=== PATIENT | female | born 1985 | race Caucasian/White ===

== ENCOUNTER 2018-02-07 15:16 | Emergency (ER) | payer SELFPAY ==
[~2018-02-07] VITALS: Ht 165.1 cm; Wt 97.0 kg
[2018-02-07 20:08] LABS: CLARITY URINE CLOUDY (CLEAR); COLOR URINE YELLOW (YELLOW); KETONES URINE 1+ (NEGATIVE); LEUKOCYTE ESTERASE URINE TRACE (NEGATIVE); NITRITE URINE NEGATIVE (NEGATIVE); OCCULT BLOOD URINE TRACE (NEGATIVE); PROTEIN URINE NEGATIVE (NEGATIVE); SPECIFIC GRAVITY URINE 1.013 (1.005-1.030); UROBILINOGEN URINE 0.2 E.U./dL (0.2-1.0)
[2018-02-07 20:22] LABS: *AMPHETAMINES SCREEN URINE NEGATIVE (NEGATIVE); *BARBITURATES SCREEN URINE NEGATIVE (NEGATIVE)
[2018-02-07 20:23] LABS: *BENZODIAZEPINES SCREEN URINE NEGATIVE (NEGATIVE); *COCAINE SCREEN URINE NEGATIVE (NEGATIVE); METHADONE URINE SCREEN NEGATIVE (NEGATIVE); OPIATES URINE SCREEN NEGATIVE (NEGATIVE)
[2018-02-07 20:24] LABS: PHENCYCLIDINE URINE SCREEN NEGATIVE (NEGATIVE)
[2018-02-07 20:31] LABS: HEMATOCRIT. 37.8 % (36.0-48.0); HEMOGLOBIN. 13.3 g/dL (12.0-16.0); LYMPHOCYTES % 33.2 % (20.0-50.0); MEAN CORPUSCULAR HEMOGLOBIN 32.6 pg (28.0-32.0); MEAN CORPUSCULAR VOLUME 92.5 fL (81.0-99.0); MEAN PLATELET VOLUME 9.3 fl (7.4-10.4); MONOCYTES % 11.9 % (2.0-8.0); NEUTROPHILS % 52.9 % (40.0-76.0); PLATELET 159 x1000/uL (130-400); RED BLOOD CELL COUNT 4.09 mill/uL (4.2-5.4); RED CELL DISTRIBUTION WIDTH 14.1 % (11.6-14.6)
[2018-02-07 20:33] LABS: CHLORIDE 108 mEq/L (98-107)
[2018-02-07 20:35] LABS: HCG SCREEN NEGATIVE
[2018-02-07 20:37] LABS: CANNABINOID URINE SCREEN PRESUMTIVE POSITIVE (NEGATIVE)
[2018-02-07 20:38] LABS: ETHANOL BLOOD < 10 mg/dL
[2018-02-08] MEDS ORDERED: VALPROIC ACID 250MG CAPSULE PO ONE (03:00)
[2018-02-08] MEDS ORDERED: LORAZEPAM 1MG TABLET PO ONE (04:00)
[2018-02-08] MEDS ORDERED: CEPHALEXIN 250MG CAPSULE PO SCH (04:15)
[2018-02-08] MEDS ORDERED: CARBAMAZEPINE 200MG TABLET PO ONE (11:15)
[2018-02-08 12:11] VITALS: BP 128/81
[2018-02-08] MEDS ORDERED: LEVETIRACETAM 500MG TABLET PO SCH (21:00)
== END 2018-02-08 12:21 | disposition home or self-care (01) ==
LOC: ER 17:55
DX: G40.909 Epilepsy, unspecified, not intractable, without status epilepticus (principal); N39.0 Urinary tract infection, site not specified; Z59.0 Homelessness
CPT/HCPCS: 36415; 80053; 80305; 80307; 81003; 81025; 84703; 85025; 99284; G0482